=== PATIENT | male | born 1970 | race Hispanic/Latino ===

== ENCOUNTER 2017-11-29 13:57 | Inpatient (IN) | payer BC ==
--- NOTE | 2017-11-29 14:03 | EDPD ---
HPI Stroke - General Time Seen by Provider: 11/29/17 13:58 Historian: Patient, EMS - History of Present Illness Narrative History of Present Illness (Free Text): 11/29/17 14:00 47 year old male, who presents to the emergency department via EMS complaining of left sided weakness on leg and arm. Patient reports he woke up at 5AM and felt that he was "walking weird". He then went back to sleep and woke up at 11 AM this morning and when taking a step with his left foot, it wouldn't move. He also complaints of feeling weakness on his left arm. Patient denies headache, chest pain, shortness of breath, or other complaints. PMD: Dr. Sharonda Gu Date:: 11/29/16 Time: 14:00 Onset:: This morning Context: Walking Exacerbated by: Nothing Relieved by: Nothing rTPA Inclusion/Exclusion - Refusal of Treatment Patient Refused Treatment: No - Inclusion Criteria for Altepase Patient is 18 years or Older: Yes The Clinical Diagnosis of Ischemic Stroke That is Causing a Potentially Disabling Neurological Deficit: Yes Time of Onset is Well Established to be Less Than 270 Minute Before Treatment Would Begin: Yes Risk/Benefit Discussed With Patient/Family Member Present: Yes - Exclusion Criteria for Altepase Uncontrolled Hypertension at Time of Treatment (Systolic BP above 185 or Diastolic BP above 110 mmHg): No Past Medical History - Provider Review Nursing Documentation Reviewed: Yes - Psychiatric Hx Substance Use: No Family/Social History - Family/Social History Family History: Non-Contributory - Review Nursing documentation reviewed.: Yes Allergies/Home Meds Allergies/Adverse Reactions: Allergies No Known Allergies Allergy (Verified 11/29/17 16:05) Home Medications: Home Meds Medication Instructions Recorded Confirmed No Known Home Med 05/21/16 11/29/17 Review of Systems - Review of Systems Constitutional: absent: Fevers Respiratory: absent: SOB, Cough Cardiovascular: absent: Chest Pain Gastrointestinal: absent: Abdominal Pain, Vomiting Genitourinary Male: absent: Dysuria Musculoskeletal: absent: Back Pain Neurological: Focal Weakness (left sided ), Gait Changes. absent: Dizziness, Speech Changes ED Stroke Physical Exam Vital Signs Reviewed: Yes Temperature: Afebrile Blood Pressure: Hypertensive Pulse: Regular Respiratory Rate: Normal Appearance: Positive for: Well-Appearing, Non-Toxic, Comfortable Pain Distress: None Mental Status: Positive for: Alert and Oriented X 3 - Systems Exam Head: Present: Atraumatic, Normocephalic Pupils: Present: PERRL Extroacular Muscles: Present: EOMI Conjunctiva: Present: Normal Mouth: Present: Moist Mucous Membranes Neck: Present: Normal Range of Motion Respiratory/Chest: Present: Clear to Auscultation, Good Air Exchange. No: Respiratory Distress, Accessory Muscle Use Cardiovascular: Present: Regular Rate and Rhythm, Normal S1, S2. No: Murmurs Abdomen: Present: Normal Bowel Sounds. No: Tenderness, Distention, Peritoneal Signs Back: Present: GCS, CN, SP Upper Extremity: Present: NORMAL PULSES, Capillary Refill < 2s. No: Cyanosis, Edema Lower Extremity: Present: NORMAL PULSES. No: Edema Neurologic: Present: GCS=15, CN II-XII Intact, Speech Normal, Motor Func Grossly Intact (left arm and leg weakness), Pronator Drift (left). No: Memory Normal, Normal 2Pt Descrimination, Facial Droop Skin: Present: Warm, Dry, Normal Color. No: Rashes Lymphatic: Present: OX3, NI, NC Psychiatric: Present: Alert, Oriented x 3, Normal Insight, Normal Concentration Medical Decision Making ED Course and Treatment: 11/29/17 Impression: 47 yo male with stroke like symptoms; left sided weakness Differential Diagnosis included but are not limited to: CVA vs TIA Plan: -- CT Head -- Labs -- EKG -- Chest X-ray -- Activase and Sodium Chloride -- Reassess and disposition Progress Notes: 11/29/17 14:00 Code stroke was activated. 11/29/17 14:[address]: Creator : Willian Jimenez MD FINDINGS: HEMORRHAGE: No intracranial hemorrhage. BRAIN: No mass effect or edema. Chronic microvascular changes are seen in the basal ganglia and periventricular white matter. There are no acute intracranial findings VENTRICLES: Unremarkable. No hydrocephalus. CALVARIUM: Unremarkable. PARANASAL SINUSES: Unremarkable as visualized. No significant inflammatory changes. MASTOID AIR CELLS: Unremarkable as visualized. No inflammatory changes. OTHER FINDINGS: None. IMPRESSION: No acute findings EKG: Ordered, reviewed, and independently interpreted the EKG. Rate : 96 BPM Rhythm : NSR Interpretation : No ST-segment elevations or depressions, T-wave inversions at 3 & ABF. Comparison : No previous EKG for comparison. 11/29/17 14:26 Patient was evaluated by Dr. Barnes, Neurologist, who agreed that tPA is indicated in this patient due to CVA symptoms and within the 4.5 window of treatment. tPA was ordered by me and confirmed by pharmacy. 11/29/17 14:36 Patient had an elevated BP and was given Labetolol 10mg IVP x 2. His blood pressure improved and was consistantly at a level appropriate for tPA administration. tPA was pushed slowly by me over 1-2min. Patient tolerated medication well. BP increased and at that patient tPA drip was on hold for a brief time. Cardene drip was ordered and blood pressure quickly improved. tPA was continued. Dr. Barnes with me at bedside throughout this case. Dr. Barnes discussed the CT with the Neurointerventialist and communicated to me that the patient could be admitted to our ICU for further management. No immediately need for intervention was communicated. Case was discussed with Dr. Osullivan, who agreed to admit this patient to the ICU. Case was discussed with Dr. Franco who admits Dr. Gu's patients. 11/29/2017 14:44 Head/Neck CTA IMPRESSION: Atherosclerotic changes are identified at the cavernous right ICA as well as proximal left ICA in the neck without significant stenosis. No additional pertinent findings on CT angiography of the head and neck. No anuerysm or arteriovascular malformation identified. Dictator: Alexandro You DO 11/29/2017 15:38 Chest X-ray IMPRESSION: No active disease. Dictator: Willian Curry MD - Lab Interpretations I have reviewed the lab results: Yes - RAD Interpretation Radiology Orders: 11/29/17 13:59 CTA HEAD/NECK CODE STROKE [CT] Stat HEAD W/O (CODE STROKE) [CT] Stat CHEST PORTABLE [RAD] Stat Telephone Clerk Telegraph Office: Radiologist - EKG Interpretation Interpreted by ED Physician: Yes Type: 12 lead EKG - Scribe Statement The provider has reviewed the documentation as recorded by the Tammy Nur Provider Scribe Attestation: All medical record entries made by the Scribe were at my direction and personally dictated by me. I have reviewed the chart and agree that the record accurately reflects my personal performance of the history, physical exam, medical decision making, and the department course for this patient. I have also personally directed, reviewed, and agree with the discharge instructions and disposition. NIHSS Scale ([place]) Time Performed: 14:00 - How Severe is the Stoke Baseline Level of Consciousness: 0=Alert LOC to Questions: 0=Both comments correct LOC to commands: 0=Obeys both correctly Best Gaze: 0=Normal Visual: 0=No visual loss Facial: 0=Normal Motor Arm - Left: 2=Falls before 10 sec Motor Arm - Right: 0=No drift Motor Leg - Left: 3=No effort against gravity (falls immediately) Motor Leg - Right: 0=No drift Limb Ataxia: 2=Present both Sensory: 1=Mild to moderate loss Best Language: 0=No aphasia Dysarthia: 0=Normal articulation Extinction & Inattention (Neglect): 0=Normal, no object Score: 8 Risk Level: Mod Stroke Risk Disposition/Present on Arrival - Present on Arrival Any Indicators Present on Arrival: No History of DVT/PE: No History of Uncontrolled Diabetes: No Urinary Catheter: No History Surgical Site Infection Following: None - Disposition Have Diagnosis and Disposition been Completed?: Yes Diagnosis: CVA (cerebral vascular accident) Disposition: HOSPITALIZED Disposition Time: 15:35 Patient Plan: Admission, ICU Condition: GUARDED
[2017-11-29] MEDS ORDERED: Iodixanol 320 mg/ml 150 ml Bottle IV ONE (14:06)
--- NOTE | 2017-11-29 14:24 | CT ---
PROCEDURE: CT HEAD WITHOUT CONTRAST. HISTORY: Code Stroke COMPARISON: None available. TECHNIQUE: Axial computed tomography images were obtained through the head/brain without intravenous contrast. Radiation dose: Total exam DLP = 859 mGy-cm. This CT exam was performed using one or more of the following dose reduction techniques: Automated exposure control, adjustment of the mA and/or kV according to patient size, and/or use of iterative reconstruction technique. FINDINGS: HEMORRHAGE: No intracranial hemorrhage. BRAIN: No mass effect or edema. Chronic microvascular changes are seen in the basal ganglia and periventricular white matter. There are no acute intracranial findings VENTRICLES: Unremarkable. No hydrocephalus. CALVARIUM: Unremarkable. PARANASAL SINUSES: Unremarkable as visualized. No significant inflammatory changes. MASTOID AIR CELLS: Unremarkable as visualized. No inflammatory changes. OTHER FINDINGS: None. IMPRESSION: No acute findings
[2017-11-29] MEDS ORDERED: Labetalol 5 mg/ml Inj 20ML IV STA ×2 (14:36→14:49)
[2017-11-29 14:43] LABS: BASO # 0.06 K/mm3 (0.0-2.0); BASO % 0.5 % (0.0-3.0); EOS # 0.2 (0.0-0.7); EOS % 1.8 % (1.5-5.0); GRAN # 9.65 (1.4-6.5); GRAN % 72.7 % (50.0-68.0); HEMOGLOBIN 14.5 g/dL (14.0-18.0); LYMPH # 2.5 (1.2-3.4); LYMPH % 18.8 % (22.0-35.0); MEAN CELL VOLUME 96.3 fl (80.0-105.0); MEAN CORPUSCULAR HGB CONC 35.3 g/dl (31.0-37.0); MEAN PLATELET VOLUME 10.6 fl (7.0-11.0); MONO # 0.8 (0.1-0.6); MONO % 6.2 % (1.0-6.0); RBC 4.27 10^6/uL (3.5-6.1); RED CELL DISTRIBUTION WIDTH 12.8 % (11.5-14.5); WHITE BLOOD COUNT 13.3 10^3/ul (4.5-11.0)
[2017-11-29 14:45] LABS: ALB/GLOB RATIO 1.4 (1.1-1.8); ALBUMIN 4.6 g/dL (3.0-4.8); ALT/SGPT 23 U/L (7-56); AST/SGOT 27 U/L (17-59); BLOOD UREA NITROGEN 9 mg/dL (7-21); CALCIUM 9.2 mg/dL (8.4-10.5); GFR AFRICAN-AMERICAN > 60; GFR NON-AFRICAN AMERICAN > 60; HDL CHOLESTEROL 70 mg/dL (29-60)
--- NOTE | 2017-11-29 14:46 | CT ---
PROCEDURE: CT Angiography of the Brain. HISTORY: cva COMPARISON: None available. TECHNIQUE: CT angiography of the intracranial and neck arteries was performed. Coronal and sagittal maximum intensity projection reformated images were generated. Contrast Dose: Omnipaque 350, 150 cc. Radiation dose:Total exam DLP = 672.66 mGy-cm. This CT exam was performed using one or more of the following dose reduction techniques: Automated exposure control, adjustment of the mA and/or kV according to patient size, and/or use of iterative reconstruction technique. FINDINGS: INTERNAL CEREBRAL ARTERIES: The skull base, petrous, and supraclinoid segments are bilaterally widely patent. The left cavernous ICA segments widely patent with the right cavernous segment mildly stenosed due to atherosclerosis. ANTERIOR CEREBRAL ARTERIES: Unremarkable. A1 and A2 segments are widely patent. Smaller distal branches unremarkable, as visualized. MIDDLE CEREBRAL ARTERIES: Unremarkable. M1 and M2 segments are widely patent. Perisylvian branches grossly symmetric. POSTERIOR CIRCULATION: Basilar Artery: Unremarkable. Distal Vertebral Arteries: No dominant distal bilateral vertebral arteries are identified which are widely patent. Posterior Cerebral Arteries: Unremarkable. Posterior Inferior Cerebellar Arteries: Unremarkable. NECK CTA: Common Carotid arteries: The bilateral common carotid appear patent from their origins to their bifurcations with no significant stenosis appreciated. Mild left carotid bulbar atherosclerosis appreciated extending into the proximal left ICA segment without significant stenosis. No evidence to suggest common carotid artery dissection. Internal Carotid arteries: No significant stenosis is appreciated throughout the cervical internal carotid artery segments bilaterally and there is no evidence of dissection either. Mild proximal left ICA atherosclerotic plaques identified. External Carotid arteries: Appear unremarkable bilaterally. Vertebral arteries: The bilateral vertebral arteries appear normal in caliber from their origins to their junction with the basilar artery. No significant stenosis or definite pattern of dissection. ANEURYSM/ VASCULAR MALFORMATIONS: None. OTHER FINDINGS: None. IMPRESSION: Atherosclerotic changes are identified at the cavernous right ICA as well as proximal left ICA in the neck without significant stenosis. No additional pertinent findings on CT angiography of the head and neck. No aneurysm or arteriovascular malformation identified.
[2017-11-29 14:51] LABS: INR 0.9 (0.93-1.08); PARTIAL THROMBOPLASTIN TIME 32.8 Seconds (25.1-36.5); PROTHROMBIN TIME 10.2 SECONDS (9.4-12.5)
[2017-11-29 14:55] LABS: TROPONIN I < 0.01 ng/mL
[2017-11-29 14:56] LABS: LDL CHOLESTEROL 135 mg/dL (0-129)
[2017-11-29] MEDS ORDERED: Nicardipine 20 MG/200 ML 20 MG/200 ML BAG IV PRN ×2 (15:02→18:22)
--- NOTE | 2017-11-29 15:07 | CP.PCM.CON ---
History of Present Illness - History of Present Illness History of Present Illness: Mr Marcos is a 47 year old male, with pmh of untreated HTN, who woke up at 5 am, feeling strange when he was walking, resolved, and then went back to sleep. He woke up again at 11 am, and when he took a step, he had profound weakness of his left leg, and left arm, and no language difficulties. This did not resolve, and he came by ambulance to the ER. Patient denies headache, chest pain, shortness of breath, or other complaints. In the ER, he was found to have left arm drift, and left leg weakness. There was no facial droop, no language difficulties. 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 All: nkda. 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/5 left bicep, 4/5 left tricep + left pronator drift Sensation grossly intact bilaterally no apraxia, no dysmetria no tremors, toes downgoing, no clonus Past Patient History - Infectious Disease Hx of Infectious Diseases: None - Past Social History Smoking Status: Heavy Smoker > 10 Cigarettes Daily - PSYCHIATRIC Hx Substance Use: No - SURGICAL HISTORY Hx Surgeries: No Meds Allergies/Adverse Reactions: Allergies Allergy/AdvReac Type Severity Reaction Status Date / Time No Known Allergies Allergy Verified 11/29/17 16:05 - Medications Medications: Current Medications Sodium Chloride (Sodium Chloride 0.9%) 1,000 mls @ 100 mls/hr IV .Q10H RAVINDRA Labetalol HCl (Trandate) 10 mg IV STAT STA Stop: 11/29/17 14:50 Results - Labs Result Diagrams: 11/29/17 14:22 11/29/17 14:22 Labs: Laboratory Results - last 24 hr 11/29/17 11/29/17 14:22 14:22 WBC 13.3 H D RBC 4.27 Hgb 14.5 Hct 41.1 L MCV 96.3 MCH 34.0 MCHC 35.3 RDW 12.8 Plt Count 249 MPV 10.6 Gran % 72.7 H Lymph % (Auto) 18.8 L Morrow % (Auto) 6.2 H Eos % (Auto) 1.8 Baso % (Auto) 0.5 Gran # 9.65 H Lymph # (Auto) 2.5 Morrow # (Auto) 0.8 H Eos # (Auto) 0.2 Baso # (Auto) 0.06 Sodium 134 Potassium 3.7 Chloride 101 Carbon Dioxide 19 L Anion Gap 18 BUN 9 Creatinine 0.8 Est GFR ( Amer) > 60 Est GFR (Non-Af Amer) > 60 Random Glucose 92 Calcium 9.2 Total Bilirubin 0.5 AST 27 ALT 23 Alkaline Phosphatase 83 Total Protein 7.7 Albumin 4.6 Globulin 3.2 Albumin/Globulin Ratio 1.4 Triglycerides 210 H Cholesterol 232 H HDL Cholesterol 70 H - Imaging and Cardiology CT scan - head Status: Image reviewed by me, Report reviewed by me Assessment & Plan - Assessment and Plan (Free Text) Assessment: 47 yr old male, right handed, who is a candidate for TPA at this time. We will control his blood pressure with labetalol and/or cardene drip as it is extremely high. I believe his stroke is in the right MCA internal capsule, M 2 division. TPA given at 250 pm. Plan: 1. Admit to ICU 2. Keep bp around 170-180/90 3. ECho with bubble study 4. homocysteine, antiphospholipid antibody, factor 5 leiden, protein c, protein s, antithrombin [address] head in 24 hours. 6. pt/st/ot 7. Venodynes 8. Mri brain in am. thank you dr. lindsey
--- NOTE | 2017-11-29 15:40 | RAD ---
HISTORY: Code Stroke COMPARISON: 05/21/2016 FINDINGS: LUNGS: No active pulmonary disease. PLEURA: No significant pleural effusion identified, no pneumothorax apparent. CARDIOVASCULAR: Normal. OSSEOUS STRUCTURES: No significant abnormalities. VISUALIZED UPPER ABDOMEN: Normal. OTHER FINDINGS: None. IMPRESSION: No active disease.
[2017-11-29] MEDS ORDERED: Insulin Reg-LOW-Coverage SC SCH (16:15)
[2017-11-29] MEDS: Sodium Chloride 0.9% 1,000 ML IV SCH (16:54)
[2017-11-29 18:34] VITALS: BMI 27.5
[2017-11-29] MEDS ORDERED: Pneumococcal 23-Valent Vaccine IM ONE (18:34)
--- NOTE | 2017-11-29 22:19 | CARD ---
APPROVED REPORT EKG Measurement Heart [id number] <Conclusion> Normal sinus rhythm Septal infarct, age undetermined Abnormal ECG
--- NOTE | 2017-11-30 03:47 | CON ---
DATE: 11/29/2017 HISTORY OF PRESENT ILLNESS: The patient is seen and examined at bedside. This is a 47-year-old gentleman with history of untreated hypertension who was admitted to [facility] ER after initially waken up around 11:00 in the morning feeling profoundly weak in his left leg, left arm. He did not however had language difficulties. His symptoms did not resolve and he was brought into [facility] by ambulance. No nausea, no vomiting, no diarrhea, no constipation. CAT scan of the head did not reveal any bleeding. NIH score calculated at the time of admission was 9. PAST MEDICAL HISTORY: Hypertension. SOCIAL HISTORY: The patient smokes half a pack a day, but no alcohol. 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 ALLERGIES: NKDA. FAMILY HISTORY: Noncontributory. MEDICATION AT HOME: None. REVIEW OF SYSTEM: Review of 12-organ system other than mentioned in history of present illness is negative. PHYSICAL EXAMINATION: GENERAL: Of note, the patient already received t-PA. As per destination imagination coordinator, who was at the bedside at the time of examination, left-sided weakness in the upper and lower extremities substantially improved. ENT: Head and neck atraumatic. LUNGS: Clear to auscultation bilaterally. HEART: Regular rate and rhythm. S1, S2 normal. ABDOMEN: Soft, nontender, nondistended. MUSCULOSKELETAL: No C/C/E. NEURO: The patient is able to shrug his shoulders, stick out tongue, frown his brows symmetrically without any deficit. He was able to smile without any asymmetry in nasolabial folds. Motor strength in the right upper and lower extremities 5/5 and motor strength in the left upper and lower extremity about 3/5. SKIN: Moist. PSYCHIATRIC: The patient is alert, awake, and oriented x3. Comfortable. LABORATORY DATA: WBC 13.3, hemoglobin 14.5, platelet count 249. INR 0.9. Sodium 134, potassium 3.7, chloride 101, carbon dioxide 19. BUN 9, creatinine 0.8. AST 27, ALT 23, bilirubin 0.5, triglyceride 210, total cholesterol 232, LDL cholesterol 135, HDL cholesterol 70. Head CT, no acute intracranial pathology. CT of the head and neck revealed atherosclerotic changes in the cavernous, right ICA as well as proximal left ICA in the neck without significant stenosis. No additional pertinent findings on CT angiography of the head and neck. No aneurysm or arteriovascular malformations identified. ASSESSMENT AND PLAN: This 47-year-old gentleman with uncontrolled hypertension who presented with clinical stroke in the right MCA territory, which substantially improved after t-PA. At present time, the patient will be going to Intensive Care Unit for blood pressure monitoring, serial neuro exam. The patient's blood pressure will be controlled at below 180/105 for next 24 hours. Therapeutic anticoagulation as well as antiplatelet therapy will be avoided for 48 hours after t-PA administration. Echocardiogram, carotid Doppler will be ordered. Occupational therapy and physical therapy will be ordered. Swallow evaluation will be ordered. N.p.o. until then. We will continue to target euvolemia, euglycemia, normothermia and oxygen saturation more than 90%. ccm time 40 min Jesus Osullivan MD KIMO
--- NOTE | 2017-11-30 06:58 | CT ---
EXAM: CT Head Without Intravenous Contrast CLINICAL HISTORY: 47 years old, male; Screening exam; Additional info: Fu stroke TECHNIQUE: Axial computed tomography images of the head/brain without intravenous contrast. All CT scans at this facility use one or more dose reduction techniques, viz.: automated exposure control; ma/kV adjustment per patient size (including targeted exams where dose is matched to indication; i.e. head); or iterative reconstruction technique. Coronal and sagittal reformatted images were created and reviewed. COMPARISON: CT - HEAD W/O (CODE STROKE) 2017-11-29 14:05 FINDINGS: Brain: There is mild ill-defined patchy hypodensity within the bilateral cerebral periventricular white matter, consistent with chronic microvascular ischemic changes. Chronic ischemic changes/lacunar infarctions are seen in bilateral basal ganglia. There is mild diffuse cerebral atrophy present, consistent with this patient's age. The cortical pérez / white matter interfaces are preserved throughout the brain. Examination of the posterior fossa demonstrates no significant abnormality. No hemorrhage. Ventricles: The ventricular system demonstrates mild diffuse compensatory enlargement. Bones/joints: Unremarkable. No acute fracture. Soft tissues: Unremarkable. Vasculature: There is no hyperdense MCA sign. Sinuses: Unremarkable as visualized. No acute sinusitis. Mastoid air cells: Unremarkable as visualized. No mastoid effusion. IMPRESSION: No acute infarction, masses or hemorrhage is seen. No acute intracranial abnormality is identified.There has been no adverse interval change since the previous study. Diffuse age-related cerebral atrophy and mild chronic microvascular white matter ischemic changes, without evidence of an acute intracranial abnormality.
--- NOTE | 2017-11-30 07:48 | CP.CCUPN ---
<Kyra Rondon - Last Filed: 11/30/17 10:16> CCU Subjective - Physician Review Subjective (Free Text): 11/30/17 10:16 Patient seen and examined at bedside. No acute events overnight. Reports mild improvement in his LUE and LLE weakness. Denies headache, dizziness, new focal deficit/weakness, blurry vision, nausea, vomiting, abdominal pain. Critical Care Time Spent (in minutes): 60 CCU Objective - Vital Signs / Intake & Output Vital Signs (Last 4 hours): Vital Signs Temp Pulse Resp BP Pulse Ox 11/30/17 06:30 78 13 148/98 H 96 11/30/17 06:20 61 13 95 11/30/17 06:10 57 L 11 L 95 11/30/17 06:01 70 16 163/89 H 97 11/30/17 06:00 98 F 85 38 H 163/89 H 89 L 11/30/17 05:50 79 39 H 95 11/30/17 05:40 75 56 H 98 11/30/17 05:30 59 L 15 145/73 98 11/30/17 05:20 58 L 19 96 11/30/17 05:10 61 34 H 96 11/30/17 05:00 57 L 13 155/68 H 97 11/30/17 04:50 61 14 96 11/30/17 04:40 60 11 L 96 11/30/17 04:31 63 10 L 168/92 H 95 11/30/17 04:30 64 16 97 11/30/17 04:24 79 29 H 172/99 H 98 11/30/17 04:22 60 11/30/17 04:02 151/99 H 11/30/17 04:01 96 11/30/17 04:00 73 23 98 11/30/17 03:50 58 L 11 L 95 Intake and Output (Last 8hrs): Intake & Output 11/29/17 11/30/17 11/30/17 22:59 06:59 14:59 Intake Total 10 1200 Output Total 1700 Balance 10 -500 Weight 186 lb 3.2 oz Intake: IV 10 1200 .9 1200 Output: Urine 1700 Urine, Voided 1700 Other: Voiding Method Urinal - Physical Exam Head: Positive for: Atraumatic, Normocephalic Pupils: Positive for: PERRL Extroacular Muscles: Positive for: EOMI Conjunctiva: Positive for: Normal Mouth: Positive for: Moist Mucous Membranes Neck: Positive for: Normal Range of Motion Respiratory/Chest: Positive for: Clear to Auscultation, Good Air Exchange. Negative for: Respiratory Distress, Accessory Muscle Use Cardiovascular: Positive for: Regular Rate and Rhythm, Normal S1, S2. Negative for: Murmurs Abdomen: Positive for: Normal Bowel Sounds. Negative for: Tenderness, Distention, Peritoneal Signs Back: Positive for: GCS, CN, SP Upper Extremity: Positive for: NORMAL PULSES, Capillary Refill < 2s. Negative for: Cyanosis, Edema Lower Extremity: Positive for: NORMAL PULSES. Negative for: Edema, CALF TENDERNESS Neurological: Positive for: GCS=15, CN II-XII Intact, Speech Normal, Normal Sensory Function, Other (LUE 4/5, RUE 5/5. LLE 3/5, RLE 5//5. Left foot drop.) . Negative for: Gait Normal Skin: Positive for: Warm, Dry, Normal Color. Negative for: Rashes Lymphatic: Positive for: OX3, NI, NC Psychiatric: Positive for: Alert, Oriented x 3, Normal Insight, Normal Concentration - Medications Active Medications: Active Medications Generic Name Dose Route Start Last Admin Trade Name Freq PRN Reason Stop Dose Admin Atorvastatin Calcium 40 mg 11/29/17 17:00 11/29/17 18:24 Lipitor PO Not Given DIN RAVINDRA Sodium Chloride 1,000 mls @ 100 mls/hr 11/29/17 14:00 11/29/17 16:54 Sodium Chloride 0.9% IV 100 mls/hr .Q10H RAVINDRA Administration Nicardipine HCl 20 mg in 200 mls @ 50 mls/hr 11/29/17 18:22 Cardene Iv Premix IV .Q4H PRN TITRATE PER MD ORDER Protocol 5 MG/HR Nicotine 1 patch 11/30/17 10:00 Nicoderm Cq TD DAILY RAVINDRA - Patient Studies Lab Studies: Lab Studies 11/29/17 Range/Units 19:26 Blood Type O POSITIVE Antibody Screen Negative BBK History Checked No verified bt Laboratory Results - last 24 hr 11/29/17 19:26 Blood Type O POSITIVE Antibody Screen Negative BBK History Checked No verified bt Fingerstick Blood Sugar Results: 96 Review of Systems - Review of Systems All systems: reviewed and no additional remarkable complaints except Review of Systems: as per subjective portion of note Assessment/Plan - Assessment and Plan (Free Text) Assessment: 47 year old male with PMH HTN, presents for clinical right MCA CVA, s/p tPA, admitted to ICU for hemodynamic monitoring and bleeding precautions after TPA administration: Neuro: AAOx4 today. Neuro checks. Maintain BP 170-180/90 Echo, carotid doppler ordered. F/u results. OT/PT eval. Repeat Head CT neg for acute changes. Cont to monitor. If stable after 24h of TPA administration, will downgrade from ICU. CV : Hx of HTN. Monitor BP. Maintain BP 170-180/90 Hemodynamically stable. Cont to monitor. Pulm: On RA. Saturating well. Maintain O2 sat>90% GI: Passed formal swallow eval. Heart healthy diet. Continue with Protonix. Renal: BUN/Cr stable. Replace lytes, maintain euvolemia. Continue to monitor. ID: Afebrile, mild leukocytosis (likely reactive). Monitor Endo: Maintain euglycemia 140-180. Heme: Stable. Cont to monitor. Psych: Normal mood. DVT ppx - held because s/p tPA GI ppx - Protonix Case seen and discussed with attending, Dr Briceño. Kyra Rondon PGY1 - Date & Time Date: 11/30/17 Time: 10:40 <Rocky Briceño - Last Filed: 11/30/17 12:34> CCU Objective - Vital Signs / Intake & Output Vital Signs (Last 4 hours): Vital Signs Pulse Resp BP Pulse Ox 11/30/17 12:05 81 199/103 H 11/30/17 10:30 171/99 H 11/30/17 10:29 77 15 11/30/17 10:28 71 11/30/17 10:27 81 11 L 11/30/17 10:26 80 11 L 11/30/17 10:25 79 24 11/30/17 10:24 89 71 H 11/30/17 10:23 78 26 H 11/30/17 10:22 81 11/30/17 10:21 75 22 11/30/17 10:20 70 22 11/30/17 10:19 67 14 11/30/17 10:18 69 17 11/30/17 10:17 67 14 11/30/17 10:16 65 14 11/30/17 10:15 63 14 11/30/17 10:14 67 14 11/30/17 10:13 68 13 11/30/17 10:12 68 11 L 11/30/17 10:11 66 11 L 11/30/17 10:10 66 13 11/30/17 10:09 65 11/30/17 10:08 64 14 11/30/17 10:07 65 15 11/30/17 10:06 66 14 11/30/17 10:05 69 24 11/30/17 10:04 67 14 11/30/17 10:03 62 15 11/30/17 10:02 65 13 11/30/17 10:01 169/101 H 11/30/17 10:00 67 19 11/30/17 09:50 69 11 L 96 11/30/17 09:40 74 18 95 11/30/17 09:30 60 9 L 170/92 H 95 11/30/17 09:20 69 17 96 11/30/17 09:10 70 16 95 11/30/17 09:00 62 11 L 166/88 H 95 11/30/17 08:50 66 12 95 11/30/17 08:40 60 10 L 94 L Intake and Output (Last 8hrs): Intake & Output 11/29/17 11/30/17 11/30/17 22:59 06:59 14:59 Intake Total 10 1200 Output Total 1700 Balance 10 -500 Weight 186 lb 3.2 oz 186 lb Intake: IV 10 1200 .9 1200 Output: Urine 1700 Urine, Voided 1700 Other: Voiding Method Urinal - Medications Active Medications: Active Medications Generic Name Dose Route Start Last Admin Trade Name Freq PRN Reason Stop Dose Admin Atorvastatin Calcium 40 mg 11/29/17 17:00 11/29/17 18:24 Lipitor PO Not Given DIN RAVINDRA Hydralazine HCl 10 mg 11/30/17 11:30 11/30/17 12:05 Apresoline IVP 10 mg Q6 PRN Administration Systolic Blood Pressure Sodium Chloride 1,000 mls @ 100 mls/hr 11/29/17 14:00 11/29/17 16:54 Sodium Chloride 0.9% IV 100 mls/hr .Q10H RAVINDRA Administration Nicardipine HCl 20 mg in 200 mls @ 50 mls/hr 11/29/17 18:22 Cardene Iv Premix IV .Q4H PRN TITRATE PER MD ORDER Protocol 5 MG/HR Nicotine 1 patch 11/30/17 10:00 11/30/17 09:27 Nicoderm Cq TD 1 patch DAILY RAVINDRA Administration Pantoprazole Sodium 20 mg 11/30/17 16:00 Protonix Ec Tab PO 0600,1600 RAVINDRA - Patient Studies Lab Studies: Lab Studies 11/29/17 Range/Units 19:26 Blood Type O POSITIVE Antibody Screen Negative BBK History Checked No verified bt Laboratory Results - last 24 hr 11/29/17 19:26 Blood Type O POSITIVE Antibody Screen Negative BBK History Checked No verified bt Critical Care Progress Note - Nutrition Nutrition: Nutrition Category Date Time Status Heart Healthy Diet [DIET] Diets 11/30/17 Lunch Ordered Assessment/Plan - Assessment and Plan (Free Text) Assessment: Patient seen and examined, agree with note with following additions/exceptions: Patient is 47 year old male with PMH HTN, presents for clinical right MCA CVA, s /p tPA, admitted to ICU. Currently afebrile, HD stable, comfortable deficits significantly improving, MRI/MRA pending. Neurology following. CVA s/p tPA HTN Recommend: - supp o2 as needed - panculture, UCx, BCx, Procal - BP control - ECHo - HgbA1C, Lipid Panel - follow up neuro - MRi/MRA brain - Speech swallow eval - ASA 24hrs post tPA - Statin - GI ppx - DVT ppx, SCDs - monitor in CCU
--- NOTE | 2017-11-30 09:20 | US ---
PROCEDURE: Bilateral carotid artery duplex ultrasound HISTORY: Carotid stenosis CVA PHYSICIAN(S): Basil Gu MD. TECHNIQUE: Duplex sonography and color-flow Doppler were used to evaluate the carotid bifurcations and limited segments of the vertebral arteries bilaterally. The exam is somewhat limited by body habitus and tortuous vessels FINDINGS: There is mild smooth heterogeneous plaque noted at the carotid bifurcations bilaterally. The peak systolic velocity in the proximal right internal carotid artery is 91 cm/sec. This corresponds to a 20 to 39% proximal right ICA stenosis. Normal systolic velocities are noted in the proximal right external carotid artery. There is antegrade flow in the right vertebral artery. The peak systolic velocity in the proximal left internal carotid artery is 100 cm/sec. This corresponds to a 20 to 39% proximal left ICA stenosis. Normal systolic velocities are noted in the proximal left external carotid artery. There is antegrade flow in the left vertebral artery. IMPRESSION: 1. Bilateral 20-39% proximal ICA stenoses. 2. Antegrade flow in both vertebral arteries.
[2017-11-30] MEDS ORDERED: Gadodiamide 287 MG/ML VIAL (20ML) IV ONE (12:38)
--- NOTE | 2017-11-30 13:38 | MRI ---
PROCEDURE: MRI BRAIN WITH AND WITHOUT CONTRAST HISTORY: r/o CVA COMPARISON: None. TECHNIQUE: Multiplanar, multisequence MR images of the brain were obtained with and without intravenous contrast enhancement. 20 cc of Omniscan FINDINGS: HEMORRHAGE: None DWI: There is a 12 mm acute infarct in the right posterior clemente radiata also extending into the internal capsule BRAIN PARENCHYMA: No mass,mass effect or edema. Chronic microvascular changes are seen in the periventricular white matter. ENHANCEMENT: No abnormal intracranial enhancement. VENTRICLES: Unremarkable. No hydrocephalus. CRANIUM: Unremarkable. ORBITS: Grossly unremarkable. PARANASAL SINUSES/MASTOIDS: Clear VASCULAR SYSTEM: Skull base flow voids intact. OTHER FINDINGS: None . IMPRESSION: There is a 12 mm acute infarct in the right posterior clemente radiata also extending into the internal capsule
[2017-11-30] MEDS: Sodium Chloride 0.9% 1,000 ML IV SCH (14:27)
--- NOTE | 2017-11-30 14:36 | HP ---
DATE OF EXAM: 11/30/2017 CHIEF COMPLAINT AND HISTORY OF PRESENT ILLNESS: This is a 47-year-old male who is coming into the hospital with complaints of left leg weakness. He says that he woke up yesterday morning and started having left leg weakness. He stated to me that he woke up at 5 a.m. and did not feel well. He gone back to sleep and woke up again at 11, when he was taking his first few steps, he noticed that his left foot was not moving as well as it normally does. He waited and thought that it may improve and then when it did not, he came into the emergency room for further evaluation. He denied any weakness in the arms. He has no fevers or chills. No headaches. No dysuria or dysarthria. He says he also has left arm weakness. He had an NIH stroke scale of 9. The patient was given t-PA and then transferred to the ICU. He had no facial asymmetry. He had no difficulty in speaking. He has no dysphagia or dysarthria. REVIEW OF SYMPTOMS: All other review of symptoms are within normal limits except what was mentioned. ALLERGIES: NO KNOWN DRUG ALLERGIES. HOME MEDICATIONS: None. SOCIAL HISTORY: He smokes about half a pack per day. He denies alcohol or drugs. 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 FAMILY HISTORY: Noncontributory. PHYSICAL EXAMINATION: VITAL SIGNS: He has a temperature of 98, pulse is 61, blood pressure 140/98, respiration is 13, O2 saturation 95%. Height is 5 feet 9 inches, weight is 186 pounds. GENERAL: The patient lying in bed, uncomfortable, and in no acute distress. HEENT: Atraumatic and normocephalic. Anicteric sclerae. Moist mucosa. [place] conjunctivae. No oral lesions. NECK: No JVD, anterior and posterior adenopathy, thyromegaly, or bruits. CARDIOVASCULAR: S1 and S2 regular. No murmur, rubs, or gallop. LUNGS: Clear to auscultation bilaterally. No wheezes, rales, or rhonchi. ABDOMEN: Bowel sounds are positive. Soft, nontender and nondistended. No hepatosplenomegaly. No rebound and no guarding EXTREMITIES: No cyanosis, clubbing, or edema. NEUROLOGIC: He has 4/5 power in the left arm. He has 4/5 power in the left leg. His hand mortgage consultant is about 3/5 power. He has no facial asymmetry. Tongue is midline. No uvula deviation. PSYCHIATRIC: He is awake, alert and oriented x3. No anxiety or depression. He has normal affect. GENITOURINARY: No CVA tenderness. VASCULAR: 2+ pulses in the carotid pulses and pedal pulses. SKIN: No erythema or nodules SPINE: Shows normal curvature. DIAGNOSTIC DATA: Chest x-ray shows no infiltrates. EKG shows a heart rate of 96, sinus rhythm. QTc is 462. Head and neck CTA shows atherosclerotic changes identified in the cavernous right ICA as well as proximal left ICA in the neck without significant stenosis. CT of the head done shows no acute infarct. Diffuse age-related cerebral atrophy. ASSESSMENT 1. Acute cerebrovascular accident, probable right middle cerebral artery stroke. 2. Hypertension. PLAN: The patient is currently admitted to the hospital. He has weakness in the left arm and left leg. His NIH scale was 9 and so he was given t-PA. He had an elevated blood pressure and for this, he was given labetalol. He has not been following much in the office. Neurology was contacted and Dr. Barnes had gone to the bedside to see the patient. He is feeling better. He says his strength is a bit better than it was yesterday when he came in. He is going to be on Lipitor for dyslipidemia. He is on IV fluids. The patient is going to have a workup for secondary causes of a stroke. He has protein C and S as well as antithrombin III, antiphospholipid. I will get Hematology to evaluate the patient as well. He is fairly young and it is concerning that he has a stroke. The patient has an echo that has been ordered as well. Bill Franco MD
--- NOTE | 2017-11-30 16:55 | CARD ---
APPROVED REPORT EXAM: Two-dimensional and M-mode echocardiogram with Doppler and color Doppler. INDICATION BUBBLE STUDY...R/O PFO 2D DIMENSIONS Left Atrium (2D)3.7 (1.6-4.0cm)IVSd1.2 (0.7-1.1cm) LVDd4.8 (3.9-5.9cm)PWd1.1 (0.7-1.1cm) LVDs3.7 (2.5-4.0cm)FS (%) 23.2 % LVEF (%)46.7 (>50%) M-Mode DIMENSIONS Aortic Root3.20 (2.2-3.7cm)Aortic Cusp Exc.1.90 (1.5-2.0cm) Aortic Valve AoV Peak Oyfkcobs802.0cm/Rhonda Peak GR.5mmHg Mitral Valve MV E Dozxzxxm54.6cm/sMV A Stbsacal84.6cm/sE/A ratio0.7 TDI E/Lateral E'0.0E/Medial E'0.0 LEFT VENTRICLE The left ventricle is normal size. There is normal left ventricular wall thickness. The systolic function is mildly impaired. Transmitral Doppler flow pattern is Grade I-abnormal relaxation pattern. RIGHT VENTRICLE The right ventricle is normal size. There is normal right ventricular wall thickness. The right ventricular systolic function is normal. ATRIA The left atrium size is normal. The right atrium size is normal. The interatrial septum is intact with no evidence for an atrial septal defect. AORTIC VALVE The aortic valve is normal in structure. No aortic regurgitation is present. There is no aortic valvular stenosis. MITRAL VALVE The mitral valve is normal in structure. There is no mitral valve regurgitation noted. There is no mitral valve stenosis. TRICUSPID VALVE The tricuspid valve is normal in structure. There is no tricuspid valve regurgitation noted. GREAT VESSELS The aortic root is normal in size. PERICARDIAL EFFUSION There is no pericardial effusion. <Conclusion> The left ventricle is normal size. There is normal left ventricular wall thickness. The systolic function is mildly impaired. Transmitral Doppler flow pattern is Grade I-abnormal relaxation pattern. The interatrial septum is intact with no evidence for an atrial septal defect.
[2017-11-30] MEDS: Pantoprazole 20 mg EC Tab PO SCH (16:57)
--- NOTE | 2017-12-01 01:02 | CP.PCM.PN ---
Subjective - Date & Time of Evaluation Date of Evaluation: 12/01/17 Time of Evaluation: 00:58 - Subjective Subjective: S: Seen at bedside. Requests a sleeping pill.States that he has been up since 4 AM in the morning. Has no other complaints. Medical record was reviewed. O: Last Vital Signs 3 Temp 98 F 11/30/17 06:00 Pulse 89 11/30/17 22:50 Resp 11 L 11/30/17 22:50 BP 156/99 H 11/30/17 22:00 Pulse Ox 90 L 11/30/17 22:50 BP : 176/101mm HG. LUNGS: Normal breathing pattern. NEURO:Speech Normla. EXT: Weakness in LUE LLE. A:Adjustment insomnia. Elevated blood pressure reading. P:Benadryl 25 mg PO x 1. Will receive Hydralazine as per order for elevated blood pressure reading. Objective - Vital Signs/Intake and Output Vital Signs (last 24 hours): Temp Pulse Resp BP Pulse Ox 98 F 89 11 L 156/99 H 90 L 11/30/17 06:00 11/30/17 22:50 11/30/17 22:50 11/30/17 22:00 11/30/17 22:50 Intake and Output: 11/30/17 12/01/17 18:59 06:59 Intake Total 1800 Output Total 1200 Balance 600 - Medications Medications: Current Medications Atorvastatin Calcium (Lipitor) 40 mg PO DIN [facility] Last Admin: 11/30/17 16:57 Dose: 40 mg Diphenhydramine HCl (Benadryl) 25 mg PO STAT STA Stop: 12/01/17 00:58 Hydralazine HCl (Apresoline) 10 mg IVP Q6 PRN PRN Reason: Systolic Blood Pressure Last Admin: 11/30/17 17:24 Dose: 10 mg Nicotine (Nicoderm Cq) 1 patch TD DAILY [facility] Last Admin: 11/30/17 09:27 Dose: 1 patch Pantoprazole Sodium (Protonix Ec Tab) 20 mg PO 0600,1600 [facility] Last Admin: 11/30/17 16:57 Dose: 20 mg - Labs Labs: PT 10.2 SECONDS (9.4-12.5) 11/29/17 14:22 INR 0.90 (0.93-1.08) L 11/29/17 14:22 APTT 32.8 Seconds (25.1-36.5) 11/29/17 14:22
[2017-12-01] MEDS: Pantoprazole 20 mg EC Tab PO SCH ×2 (06:35→18:15)
[2017-12-01 07:52] LABS: BASO # 0.05 K/mm3 (0.0-2.0); BASO % 0.6 % (0.0-3.0); EOS # 0.3 (0.0-0.7); EOS % 3.4 % (1.5-5.0); GRAN # 5.49 (1.4-6.5); GRAN % 62.8 % (50.0-68.0); HEMOGLOBIN 14.2 g/dL (14.0-18.0); LYMPH # 2.2 (1.2-3.4); LYMPH % 25.2 % (22.0-35.0); MEAN CELL VOLUME 98.1 fl (80.0-105.0); MEAN CORPUSCULAR HEMOGLOBIN 32.9 pg (25.0-35.0); MEAN CORPUSCULAR HGB CONC 33.6 g/dl (31.0-37.0); MEAN PLATELET VOLUME 10.9 fl (7.0-11.0); MONO # 0.7 (0.1-0.6); RBC 4.31 10^6/uL (3.5-6.1); RED CELL DISTRIBUTION WIDTH 13.1 % (11.5-14.5); WHITE BLOOD COUNT 8.7 10^3/ul (4.5-11.0)
[2017-12-01 08:09] LABS: ALB/GLOB RATIO 1.3 (1.1-1.8); ALT/SGPT 27 U/L (7-56); AST/SGOT 23 U/L (17-59); BLOOD UREA NITROGEN 10 mg/dL (7-21); CALCIUM 9.3 mg/dL (8.4-10.5); GFR AFRICAN-AMERICAN > 60; GFR NON-AFRICAN AMERICAN > 60
--- NOTE | 2017-12-01 14:51 | PN ---
DATE: 12/01/2017 SUBJECTIVE: He is comfortable in bed in no acute distress. He had complaints of palpitations last night. Also had inability to sleep. Heart rate was elevated up to 113 beats per minute. Denies any chest pain. No shortness of breath. He has not got out of the bed, left-sided arm and leg weakness improved markedly. REVIEW OF SYSTEMS: As per HPI. Rest of 12-point review of systems is reviewed and negative. PHYSICAL EXAMINATION: GENERAL: Comfortable in bed, no acute distress. VITAL SIGNS: Heart rate had tachycardia up to 113, blood pressure elevated to 187/106, repeat 183/78, pulse ox is 99% on room air, respiratory rate 18 per minute. NECK: No lymphadenopathy. CHEST: Air entry present equal and bilateral. No added sounds. CARDIOVASCULAR: S1 and S2 normal. No murmur and no gallop. ABDOMEN: Soft, nontender. No hepatosplenomegaly. EXTREMITIES: No edema. Left-sided hemiparesis present. SPINE: Nontender. SKIN: No petechiae. No rash. MEDICATIONS: Tylenol 650 every 6 hours p.r.n., Lipitor 40 mg daily, hydralazine 10 mg every 6 hours p.r.n., nicotine patch, Protonix 20 mg b.i.d. LABORATORY DATA: White count 8.7, hemoglobin 14.2, hematocrit 42.3, platelet 242. potassium 3.9, creatinine 0.9, triglyceride elevated 210. ASSESSMENT AND PLAN: 1. ischemic stroke in the right internal capsule, 12 mm on MRI. 2. Left-sided weakness, left hemiparesis, recovering. 3. Possible hypercoagulable state, thrombophilia workup ordered yesterday, results pending. 4. We will continue nicotine patch for chronic smoking, tolerating patch better, no problems regarding that. 5. Cardiovascular, episodes of tachycardia, chest discomfort. Cardiology, Dr. Turner consulted. 6. Hematology, [place] [address], normal now at 8.7. We will continue to follow. Luz Maria Dominguez MD [facility]
--- NOTE | 2017-12-02 03:25 | CP.PCM.PN ---
Subjective - Date & Time of Evaluation Date of Evaluation: 12/02/17 Time of Evaluation: 03:22 - Subjective Subjective: S:Patient was seen at bedside. Requests for a sleeping pill. States that benadryl he received yesterday helped him. Has no other complaints. Pertinent medical record was reviewed. O: Last Vital Signs 3 Temp 98.0 F 12/02/17 00:01 Pulse 98 H 12/02/17 00:01 Resp 22 12/02/17 00:01 BP 166/98 H 12/02/17 00:01 Pulse Ox 98 12/02/17 00:01 Awake, alert,not in distress. LUNGS: Normal breathing pattern. NEURO: Speech normal. A:Adjustment insomnia. P:Benadryl 25 mg PO x 1. Objective - Vital Signs/Intake and Output Vital Signs (last 24 hours): Temp Pulse Resp BP Pulse Ox 98.0 F 98 H 22 166/98 H 98 12/02/17 00:01 12/02/17 00:01 12/02/17 00:01 12/02/17 00:01 12/02/17 00:01 Intake and Output: 12/01/17 12/02/17 18:59 06:59 Intake Total 540 Output Total 400 Balance 140 - Medications Medications: Current Medications Acetaminophen (Tylenol 325mg Tab) 650 mg PO Q6H PRN PRN Reason: Pain, moderate (4-7) Aspirin (Aspirin) 325 mg PO DAILY [facility] Last Admin: 12/01/17 18:15 Dose: 325 mg Atorvastatin Calcium (Lipitor) 40 mg PO DIN [facility] Last Admin: 12/01/17 18:13 Dose: 40 mg Hydralazine HCl (Apresoline) 10 mg IVP Q6 PRN PRN Reason: Systolic Blood Pressure Last Admin: 12/01/17 23:53 Dose: 10 mg Nicotine (Nicoderm Cq) 1 patch TD DAILY [facility] Last Admin: 12/01/17 10:38 Dose: 1 patch Pantoprazole Sodium (Protonix Ec Tab) 20 mg PO 0600,1600 [facility] Last Admin: 12/01/17 18:15 Dose: 20 mg - Labs Labs: 12/01/17 07:00 12/01/17 07:00 PT 10.2 SECONDS (9.4-12.5) 11/29/17 14:22 INR 0.90 (0.93-1.08) L 11/29/17 14:22 APTT 32.8 Seconds (25.1-36.5) 11/29/17 14:22
[2017-12-02 06:36] LABS: BASO # 0.05 K/mm3 (0.0-2.0); BASO % 0.5 % (0.0-3.0); EOS # 0.3 (0.0-0.7); EOS % 3.3 % (1.5-5.0); GRAN # 6.25 (1.4-6.5); GRAN % 64.8 % (50.0-68.0); HEMOGLOBIN 14.2 g/dL (14.0-18.0); LYMPH # 2.2 (1.2-3.4); LYMPH % 23.2 % (22.0-35.0); MEAN CELL VOLUME 98.6 fl (80.0-105.0); MEAN CORPUSCULAR HEMOGLOBIN 33.4 pg (25.0-35.0); MEAN CORPUSCULAR HGB CONC 33.9 g/dl (31.0-37.0); MEAN PLATELET VOLUME 10.6 fl (7.0-11.0); MONO # 0.8 (0.1-0.6); MONO % 8.2 % (1.0-6.0); RBC 4.25 10^6/uL (3.5-6.1); RED CELL DISTRIBUTION WIDTH 13.2 % (11.5-14.5); WHITE BLOOD COUNT 9.7 10^3/ul (4.5-11.0)
[2017-12-02] MEDS: Pantoprazole 20 mg EC Tab PO SCH ×2 (06:51→17:20)
[2017-12-02 07:12] LABS: ALB/GLOB RATIO 1.4 (1.1-1.8); ALT/SGPT 23 U/L (7-56); AST/SGOT 23 U/L (17-59); BLOOD UREA NITROGEN 17 mg/dL (7-21); CALCIUM 9.1 mg/dL (8.4-10.5); GFR AFRICAN-AMERICAN > 60; GFR NON-AFRICAN AMERICAN > 60
--- NOTE | 2017-12-02 07:37 | CP.PCM.PN ---
Subjective - Date & Time of Evaluation Date of Evaluation: 12/02/17 Time of Evaluation: 07:37 - Subjective Subjective: Mr. Marcos was seen and examined at the bedside. He remains alert, oriented in all spheres. He denies any headache, dizziness, lightheadedness, nausea, or vomiting. He states of wanting to go to [facility] for intense physical therapy. He is able to follow simple commands. There was no untoward events overnight. Objective - Vital Signs/Intake and Output Vital Signs (last 24 hours): Temp Pulse Resp BP Pulse Ox 98.2 F 97 H 22 144/88 100 12/02/17 06:00 12/02/17 06:00 12/02/17 06:00 12/02/17 06:00 12/02/17 06:00 - Medications Medications: Current Medications Acetaminophen (Tylenol 325mg Tab) 650 mg PO Q6H PRN PRN Reason: Pain, moderate (4-7) Aspirin (Aspirin) 325 mg PO DAILY [facility] Last Admin: 12/01/17 18:15 Dose: 325 mg Atorvastatin Calcium (Lipitor) 40 mg PO DIN [facility] Last Admin: 12/01/17 18:13 Dose: 40 mg Hydralazine HCl (Apresoline) 10 mg IVP Q6 PRN PRN Reason: Systolic Blood Pressure Last Admin: 12/01/17 23:53 Dose: 10 mg Nicotine (Nicoderm Cq) 1 patch TD DAILY [facility] Last Admin: 12/01/17 10:38 Dose: 1 patch Pantoprazole Sodium (Protonix Ec Tab) 20 mg PO 0600,1600 [facility] Last Admin: 12/02/17 06:51 Dose: 20 mg Zolpidem Tartrate (Ambien) 10 mg PO HS PRN; Protocol PRN Reason: Insomnia - Labs Labs: 12/02/17 06:15 12/02/17 06:15 PT 10.2 SECONDS (9.4-12.5) 11/29/17 14:22 INR 0.90 (0.93-1.08) L 11/29/17 14:22 APTT 32.8 Seconds (25.1-36.5) 11/29/17 14:22 - Constitutional Appears: No Acute Distress - Head Exam Head Exam: NORMAL INSPECTION - Neurological Exam Neurological Exam: Alert, Awake, CN II-XII Intact, Oriented x3 Neuro motor strength exam: Left Upper Extremity: 5, Right Upper Extremity: 5, Left Lower Extremity: 4 (turns towards the right leg when elevated.), Right Lower Extremity: 5 Additional comments: Alert, oriented, follows commands. Sensation remains intact. Assessment and Plan (1) CVA (cerebral vascular accident) Assessment & Plan: Case discussed with Dr. Barnes, continue all current medical, physical, and occupational therapies. Recommend acute rehab for discharge planning and blood pressure control. Status: Acute
--- NOTE | 2017-12-02 07:40 | PN ---
DATE: 12/02/2017 SUBJECTIVE He is comfortable in bed, in no acute distress. Left arm weakness and left leg weakness slightly improved. He has complains of lack of sleep and was given Benadryl in the night. Heart rate was elevated yesterday. Cardiology consultation, Dr. Turner, was requested; heart rate is better controlled now. Blood pressure was also elevated yesterday which is normal and that has improved today. REVIEW OF SYSTEMS: As per HPI. Rest of the 12-point review of systems reviewed negative. PHYSICAL EXAMINATION: GENERAL: Comfortable in bed in acute distress. VITAL SIGNS: Temperature 98.2, heart rate is 97, blood pressure 144/88, respiratory rate 22, oxygen saturation 100% on room air. HEENT: No lymphadenopathy. CHEST: Air entry present and equal bilaterally. No added sound. CARDIOVASCULAR: S1, S2 normal. No murmur. No gallop. ABDOMEN: Soft, nontender. No hepatosplenomegaly. EXTREMITIES: No edema. OPERATIONS TECH: Left-sided hemiparesis present. Stable. SKIN: No petechiae. No rash. SPINE: Nontender. LABORATORY DATA: Labs on 12/01, sodium 143, potassium 3.9, creatinine 0.9. White count 8.7, hemoglobin 14.3, hematocrit 42.3, platelet 242. ASSESSMENT AND PLAN: 1. Ischemic stroke in the right internal capsule 2. Left-sided hemiparesis. 3. Tachycardia. 4. Hypercholesterolemia. 5. Chronic heavy smoker. PLAN: We will continue aspirin 325 mg daily. Thrombophilia workup pending. Blood pressure better controlled now. He is on hydralazine p.r.n., Lipitor 40 mg daily, Protonix 20 mg daily. Cardiology consultation, Dr. Turner, requested for tachycardia and hypertension. Bedside physical therapy requested. Luz Maria Dominguez MD
--- NOTE | 2017-12-02 11:29 | CP.PCM.CON ---
History of Present Illness - History of Present Illness History of Present Illness: Lying in bed, awake,no distress, denies chest pain Reason for consultation: Cardiac evaluation, left sided weakness with TPA in the ER, post stroke protocol,current smoker,hypertension Brief history of present illness: A 47 year old male who came in to the ER due to left sided weakness on left leg and arm. He woke up at 5 am and claimed to be "walking weird". He went back to sleep and woke up at 11am and unable to move his left leg when attempted to walk. He has weakness of his left arm. CT scan of head revealed no hemorrhage. MRI of the brain showe 12 mm acute infarct in the right posterior clemente radiata extending into internal capsule. Stroke protocol was initiated and TPA was given in the ER. History of hypertension and current heavy smoker. Seen and examined by me and Dr. Medrano Review of Systems - Cardiovascular Additional comments: tachycardia - Respiratory Additional comments: denies shortness of breath, - Gastrointestinal Additional comments: denies any problems - Genitourinary Additional comments: continent - Neurological Additional comments: left sided weakness, left leg more than left arm, no slurred speech left arm drifting Past Patient History - Infectious Disease Hx of Infectious Diseases: None - Past Social History Smoking Status: Heavy Smoker > 10 Cigarettes Daily - CARDIAC Hx Hypertension: Yes - PULMONARY Hx Respiratory Disorders: Yes (SMOKES PK 1/2 X 20 YRS) - NEUROLOGICAL HX Cerebrovascular Accident: Yes (L sided weakness) - HEENT Hx HEENT Problems: No - RENAL Hx Chronic Kidney Disease: No - ENDOCRINE/METABOLIC Hx Endocrine Disorders: No - HEMATOLOGICAL/ONCOLOGICAL Hx Blood Disorders: No - INTEGUMENTARY Hx Dermatological Problems: Yes (YELLOW,WHITE NAILS,BRITTLE.) - MUSCULOSKELETAL/RHEUMATOLOGICAL Hx Musculoskeletal Disorders: No Hx Falls: Yes (5-3-18) - GASTROINTESTINAL Hx Gastrointestinal Disorders: No - GENITOURINARY/GYNECOLOGICAL Hx Genitourinary Disorders: No - PSYCHIATRIC Hx Substance Use: No - SURGICAL HISTORY Hx Surgeries: No Meds Allergies/Adverse Reactions: Allergies Allergy/AdvReac Type Severity Reaction Status Date / Time No Known Allergies Allergy Verified 11/29/17 16:05 - Medications Medications: Current Medications Acetaminophen (Tylenol 325mg Tab) 650 mg PO Q6H PRN PRN Reason: Pain, moderate (4-7) Aspirin (Aspirin) 325 mg PO DAILY [facility] Last Admin: 12/02/17 09:20 Dose: 325 mg Atorvastatin Calcium (Lipitor) 40 mg PO DIN [facility] Last Admin: 12/01/17 18:13 Dose: 40 mg Hydralazine HCl (Apresoline) 10 mg IVP Q6 PRN PRN Reason: Systolic Blood Pressure Last Admin: 12/01/17 23:53 Dose: 10 mg Metoprolol Tartrate (Lopressor) 50 mg PO BID [facility] Nicotine (Nicoderm Cq) 1 patch TD DAILY [facility] Last Admin: 12/02/17 09:19 Dose: 1 patch Pantoprazole Sodium (Protonix Ec Tab) 20 mg PO 0600,1600 [facility] Last Admin: 12/02/17 06:51 Dose: 20 mg Zolpidem Tartrate (Ambien) 10 mg PO HS PRN; Protocol PRN Reason: Insomnia Physical Exam - Constitutional Appears: No Acute Distress - Head Exam Head Exam: NORMOCEPHALIC - Eye Exam Eye Exam: Normal appearance Pupil Exam: NORMAL ACCOMODATION - ENT Exam ENT Exam: Mucous Membranes Moist - Respiratory Exam Respiratory Exam: Clear to Auscultation Bilateral, NORMAL BREATHING PATTERN - Cardiovascular Exam Cardiovascular Exam: +S1, +S2 Additional comments: telemetry NSR 80's - GI/Abdominal Exam GI & Abdominal Exam: Normal Bowel Sounds, Soft - Exam Additional comments: continent/urinal - Psychiatric Exam Psychiatric exam: Normal Affect, Normal Mood - Skin Skin Exam: Intact, Normal Color, Warm Results - Vital Signs Recent Vital Signs: Last Vital Signs Temp 98.2 F 12/02/17 06:00 Pulse 97 H 12/02/17 06:00 Resp 22 12/02/17 06:00 BP 144/88 12/02/17 06:00 Pulse Ox 100 12/02/17 06:00 - Labs Result Diagrams: 12/02/17 06:15 12/02/17 06:15 Labs: Laboratory Results - last 24 hr 12/02/17 12/02/17 06:15 06:15 WBC 9.7 RBC 4.25 Hgb 14.2 Hct 41.9 L MCV 98.6 MCH 33.4 MCHC 33.9 RDW 13.2 Plt Count 241 MPV 10.6 Gran % 64.8 Lymph % (Auto) 23.2 Williams % (Auto) 8.2 H Eos % (Auto) 3.3 Baso % (Auto) 0.5 Gran # 6.25 Lymph # (Auto) 2.2 Williams # (Auto) 0.8 H Eos # (Auto) 0.3 Baso # (Auto) 0.05 Sodium 143 Potassium 3.9 Chloride 112 H Carbon Dioxide 18 L Anion Gap 17 BUN 17 Creatinine 1.0 Est GFR ( Amer) > 60 Est GFR (Non-Af Amer) > 60 Random Glucose 93 Calcium 9.1 Total Bilirubin 0.9 AST 23 ALT 23 Alkaline Phosphatase 62 Total Protein 7.0 Albumin 4.0 Globulin 2.9 Albumin/Globulin Ratio 1.4 Assessment & Plan - Assessment and Plan (Free Text) Assessment: A 47 year old male who came in to the ER due to left sided weakness on left leg and arm. He woke up at 5 am and claimed to be "walking weird". He went back to sleep and woke up at 11am and unable to move his left leg when attempted to walk. He has weakness of his left arm. CT scan of head revealed no hemorrhage. MRI of the brain showe 12 mm acute infarct in the right posterior clemente radiata extending into internal capsule. Stroke protocol was initiated and TPA was given in the ER. History of hypertension and current heavy smoker. No previous cardiac work up in [facility] [place]. Plan: ECHO result normal LV function, mildly impaired systolic function Post CVA, post TPA Left sided weakness Physical rehab Fall precaution Maintain SBP 170-180's per neurology On ASA 325 mg daily,Lipitor 40 mg daily, Hydralazine PRN Metoprolol 50 mg BID Smoking cessation, on Nicoderm patch on Healthy heart diet Continue current medications Continue current treatment Will follow up Thank you Dr. Franco for the opportunity to take care of Mr. Grey Marcos - Date & Time Date: 12/02/17 Time: 07:15
--- NOTE | 2017-12-03 03:36 | CP.PCM.PN ---
Subjective - Date & Time of Evaluation Date of Evaluation: 12/03/17 Time of Evaluation: 03:34 - Subjective Subjective: S:Requested sleeping pill. Has no other complaints. Medical record was reviewed. O: Last Vital Signs 3 Temp 98.3 F 12/02/17 18:00 Pulse 75 12/02/17 22:49 Resp 20 12/02/17 18:00 BP 167/90 H 12/02/17 22:49 Pulse Ox 100 12/02/17 06:00 Awake, alert, not in distress. LUNGS:Normal breathing pattern. NEURO:Speech normal. A:Adjustment insomnia. P:Benadryl 25 mg PO x 1. Objective - Vital Signs/Intake and Output Vital Signs (last 24 hours): Temp Pulse Resp BP Pulse Ox 98.3 F 75 20 167/90 H 100 12/02/17 18:00 12/02/17 22:49 12/02/17 18:00 12/02/17 22:49 12/02/17 06:00 Intake and Output: 12/02/17 12/03/17 18:59 06:59 Intake Total 360 Output Total 200 Balance 160 - Medications Medications: Current Medications Acetaminophen (Tylenol 325mg Tab) 650 mg PO Q6H PRN PRN Reason: Pain, moderate (4-7) Aspirin (Aspirin) 325 mg PO DAILY [facility] Last Admin: 12/02/17 09:20 Dose: 325 mg Atorvastatin Calcium (Lipitor) 40 mg PO DIN [facility] Last Admin: 12/02/17 17:18 Dose: 40 mg Hydralazine HCl (Apresoline) 10 mg IVP Q6 PRN PRN Reason: Systolic Blood Pressure Last Admin: 12/02/17 22:49 Dose: 10 mg Metoprolol Tartrate (Lopressor) 50 mg PO BID [facility] Last Admin: 12/02/17 17:20 Dose: 50 mg Nicotine (Nicoderm Cq) 1 patch TD DAILY [facility] Last Admin: 12/02/17 09:19 Dose: 1 patch Pantoprazole Sodium (Protonix Ec Tab) 20 mg PO 0600,1600 [facility] Last Admin: 12/02/17 17:20 Dose: 20 mg Zolpidem Tartrate (Ambien) 10 mg PO HS PRN; Protocol PRN Reason: Insomnia - Labs Labs: 12/02/17 06:15 12/02/17 06:15 PT 10.2 SECONDS (9.4-12.5) 11/29/17 14:22 INR 0.90 (0.93-1.08) L 11/29/17 14:22 APTT 32.8 Seconds (25.1-36.5) 11/29/17 14:22
[2017-12-03] MEDS: Pantoprazole 20 mg EC Tab PO SCH ×2 (07:04→17:44)
[2017-12-03 07:33] LABS: BASO # 0.06 K/mm3 (0.0-2.0); BASO % 0.5 % (0.0-3.0); EOS # 0.4 (0.0-0.7); EOS % 3.2 % (1.5-5.0); GRAN # 8.67 (1.4-6.5); GRAN % 69.1 % (50.0-68.0); HEMOGLOBIN 14.2 g/dL (14.0-18.0); LYMPH # 2.3 (1.2-3.4); LYMPH % 18.6 % (22.0-35.0); MEAN CELL VOLUME 98.8 fl (80.0-105.0); MEAN CORPUSCULAR HEMOGLOBIN 33.3 pg (25.0-35.0); MEAN CORPUSCULAR HGB CONC 33.6 g/dl (31.0-37.0); MEAN PLATELET VOLUME 10.8 fl (7.0-11.0); MONO # 1.1 (0.1-0.6); MONO % 8.6 % (1.0-6.0); RBC 4.27 10^6/uL (3.5-6.1); RED CELL DISTRIBUTION WIDTH 13.1 % (11.5-14.5); WHITE BLOOD COUNT 12.5 10^3/ul (4.5-11.0)
--- NOTE | 2017-12-03 07:47 | CP.PCM.PN ---
Subjective - Date & Time of Evaluation Date of Evaluation: 12/03/17 Time of Evaluation: 08:00 - Subjective Subjective: PGY2 Neuro progress note for Dr. Han Patient seen and examined at bedside. Nursing reported no acute events overnight. Patient continues to experience weakness in his left foot. He has been walking with the walker with PT. Denied acute complaints of fever, chills, headache, dizziness, chest pain, palpitations, SOB, cough, abd pain, nausea, vomiting, bowel/bladder complaints, pain/swelling in legs b/l. Objective - Vital Signs/Intake and Output Vital Signs (last 24 hours): Temp Pulse Resp BP Pulse Ox 98.7 F 65 19 167/90 H 97 12/03/17 00:00 12/03/17 02:00 12/03/17 00:00 12/03/17 00:00 12/03/17 00:00 - Medications Medications: Current Medications Acetaminophen (Tylenol 325mg Tab) 650 mg PO Q6H PRN PRN Reason: Pain, moderate (4-7) Aspirin (Aspirin) 325 mg PO DAILY [facility] Last Admin: 12/02/17 09:20 Dose: 325 mg Atorvastatin Calcium (Lipitor) 40 mg PO DIN [facility] Last Admin: 12/02/17 17:18 Dose: 40 mg Hydralazine HCl (Apresoline) 10 mg IVP Q6 PRN PRN Reason: Systolic Blood Pressure Last Admin: 12/02/17 22:49 Dose: 10 mg Metoprolol Tartrate (Lopressor) 50 mg PO BID [facility] Last Admin: 12/02/17 17:20 Dose: 50 mg Nicotine (Nicoderm Cq) 1 patch TD DAILY [facility] Last Admin: 12/02/17 09:19 Dose: 1 patch Pantoprazole Sodium (Protonix Ec Tab) 20 mg PO 0600,1600 [facility] Last Admin: 12/03/17 07:04 Dose: 20 mg Zolpidem Tartrate (Ambien) 10 mg PO HS PRN; Protocol PRN Reason: Insomnia - Labs Labs: 12/03/17 07:00 12/02/17 06:15 PT 10.2 SECONDS (9.4-12.5) 11/29/17 14:22 INR 0.90 (0.93-1.08) L 11/29/17 14:22 APTT 32.8 Seconds (25.1-36.5) 11/29/17 14:22 - Constitutional Appears: Non-toxic, No Acute Distress - Head Exam Head Exam: ATRAUMATIC, NORMAL INSPECTION, NORMOCEPHALIC - Eye Exam Eye Exam: EOMI, Normal appearance, PERRL. absent: Conjunctival injection, Scleral icterus - ENT Exam ENT Exam: Mucous Membranes Moist - Neck Exam Neck Exam: Full ROM, Normal Inspection - Respiratory Exam Respiratory Exam: Clear to Ausculation Bilateral, NORMAL BREATHING PATTERN - Cardiovascular Exam Cardiovascular Exam: RRR, +S1, +S2 - GI/Abdominal Exam GI & Abdominal Exam: Soft, Normal Bowel Sounds - Extremities Exam Extremities Exam: absent: Pedal Edema - Neurological Exam Neurological Exam: Alert, Awake, Oriented x3 Neuro motor strength exam: Left Upper Extremity: 4, Right Upper Extremity: 5, Left Lower Extremity: 4, Right Lower Extremity: 5 Additional comments: -LUE pronator drift -LUE and LLE weaker than RUE and RLE respectively -hyprereflexia LLE -L foot drop -sensation intact in all 4 extremities - Psychiatric Exam Psychiatric exam: Normal Affect, Normal Mood - Skin Skin Exam: Dry, Intact Assessment and Plan - Assessment and Plan (Free Text) Assessment: 47 year old male with PMHx HTN presents for right MCA CVA, s/p tPA Plan: -recommend continuing ASA 325mg po qdaily upon discharge -recommend patient drinking 3L water/day -recommend physical therapy in [facility] -recommend f/u with neurology outpatient Discussed with Dr. Guille Cazares PGY2
[2017-12-03 07:48] LABS: ALB/GLOB RATIO 1.4 (1.1-1.8); ALBUMIN 4.1 g/dL (3.0-4.8); ALT/SGPT 16 U/L (7-56); AST/SGOT 23 U/L (17-59); BLOOD UREA NITROGEN 23 mg/dL (7-21); CALCIUM 9.3 mg/dL (8.4-10.5); GFR AFRICAN-AMERICAN > 60; GFR NON-AFRICAN AMERICAN > 60
--- NOTE | 2017-12-03 08:18 | CON ---
DATE: 11/30/2017 REQUESTING PHYSICIAN: Bill Franco MD REASON FOR CONSULTATION: Possible hypercoagulable state, history of thrombotic stroke. HISTORY OF PRESENT ILLNESS: Mr. Marcos is a 47-year-old male admitted to the hospital with left arm and left leg weakness. He woke up in the morning and felt the weakness in the left leg. He a.m. until he realized that he might be having stroke and called 911. MRI of the brain showed 12 mm infarction in internal capsule on the right side. He received tPA. No family history of stroke, DVT or FL. He has history of hyperlipidemia. The triglyceride elevated to 210. PAST SURGICAL HISTORY: None. FAMILY HISTORY: No positive family history of FL, stroke. ALLERGIES: NO KNOWN DRUG ALLERGIES. HOME MEDICATIONS: None. REVIEW OF SYSTEMS: As per HPI. Rest of 12-point review of systems reviewed and negative. PHYSICAL EXAMINATION: GENERAL: Comfortable in bed, in no acute distress. VITAL SIGNS: Stable. Temperature 98, heart rate 81 per minute, blood pressure 171/99, respiratory rate 15 per minute, oxygen saturation 98% on room air. HEENT: No pallor. NECK: No lymphadenopathy. CHEST: Air entry present equal and bilateral. No added sounds. CARDIOVASCULAR: S1 and S2 normal. No murmur. No gallop. ABDOMEN: Soft, nontender. No hepatosplenomegaly. EXTREMITIES: No edema. SKIN: No petechiae. No rash. SPINE: Nontender. LABORATORY DATA: White count 13.3, hemoglobin 14.5, hematocrit 41.1, platelet 249. Sodium 134, potassium 3.7, carbon dioxide 12, creatinine 0.8, triglyceride 210, cholesterol 232, LDL 135, HDL 70. PT 10.2, INR 0.9, PTT 32.8. MEDICATIONS: Lipitor 40 mg daily, hydralazine 40 mg every 6 hours p.r.n., Cardene drip, nicotine patch, Protonix, , IV fluids 800 mL an hour, status post tPA. ASSESSMENT AND PLAN: 1. Thrombotic ischemic stroke of right internal capsule. 2. Left-sided hemiparesis. 3. Hyperlipidemia. 4. Heavy smoker. PLAN: He might have underlying hypercoagulable state. Protein C level and activity, protein S level and activity, lupus anticoagulant, antiphospholipid antibody, TONA, prothrombin gene mutation, MTHFR gene mutation, factor V Leiden ordered. Discussed with Mr. Marcos for smoking cessation, control of lipids. If he has underlying major factor for thrombosis on the workup, he will be evaluated for long-term anticoagulation because of ischemic stroke at an early age 47. Discussed all of the above with Mr. Marcos. Thank you, Dr. Franco for allowing us to participate in Mr. Marcos' care. We will continue to follow. Luz Maria Dominguez MD [facility]
[2017-12-03 09:09] VITALS: O2SAT 98
[2017-12-03 12:28] VITALS: RESP 20; TEMP 98.8
[2017-12-03 17:46] VITALS: BP 150/94; PULSE 60
--- NOTE | 2017-12-03 18:24 | PN ---
DATE: 12/03/2017 REASON FOR CONSULTATION AND FOLLOWUP: Acute CVA, cardiac evaluation, status post tPA. SUBJECTIVE: Patient denies any chest pain, shortness of breath, or any palpitations. PHYSICAL EXAMINATION: GENERAL: Not in apparent distress. VITAL SIGNS: Temperature afebrile, heart rate 76, blood pressure 152/93. HEENT: PERRLA, intact. NECK: Supple. No carotid bruit or thyromegaly. CHEST: Clear to auscultation. HEART: S1 and S2, regular. ABDOMEN: Soft. EXTREMITIES: Clubbing and cyanosis negative. LABORATORY DATA: Blood workup as follows. WBC 12.9, hemoglobin 14.2, hematocrit 42.2, and platelet count 236. Chemistry shows sodium 140, potassium 3.8, chloride 112, carbon oxide of 18, anion gap 17. BUN 23, creatinine 1. IMPRESSION: Acute cerebrovascular accident with residual left-sided weakness, currently smoker, status post tPA, left-sided weakness, hypertension. As per protocol of neurology, patient is on p.r.n. hydralazine for systolic more than 170. Continue metoprolol. Continue amlodipine. Continue to rehab. Continue nicotine patch. We will follow. Patient had echocardiography done yesterday that shows left ventricle systolic function appeared intact. EF 46%. MRI of the brain shows 12 mm acute infarct in the right posterior clemente radiata extending to the internal capsule. RECOMMENDATIONS: As mentioned, continue aspirin, continue metoprolol, continue amlodipine. We will put p.r.n. hydralazine if systolic more than 170. We will follow. LDL 135 and triglyceride 210. Total cholesterol 232, HDL 70. Put atorvastatin 80 mg. Alex Turner MD
[2017-12-04 08:17] LABS: B2 GLYCOPROTEIN I AB(IGA) <9 SAU (<=20); B2 GLYCOPROTEIN I AB(IGG) <9 SGU (<=20); B2 GLYCOPROTEIN I AB(IGM) <9 SMU (<=20)
--- NOTE | 2017-12-04 09:11 | DS ---
SUBJECTIVE: This is a 47-year-old male who had come to the hospital because of an acute CVA. The patient was having left-sided weakness and was brought in. The patient had been given tPA. He had some improvement of the symptoms. He was seen by Neurology. He was also seen by Hematology for workup for secondary causes. The patient is on aspirin, Lipitor. He is going to be discharged to acute rehab facility. ASSESSMENT: 1. Acute right middle cerebral artery stroke, status post tissue plasminogen activator. 2. Smoking. 3. Dyslipidemia. 4. Hypertension. PLAN: The patient is currently comfortable. The patent is going to continue with Lipitor for dyslipidemia. I have increased this to 80 mg. Patient is on a nicotine patch for smoking. He is on Protonix. His blood pressure is better controlled at this point. He does continue to have mildly elevated blood pressure. I will place him on blood pressure medications with amlodipine. He is currently comfortable. CONDITION: Stable. ACTIVITIES: Increase as tolerated. Bill Franco MD
[2017-12-05 06:47] LABS: PHOSPHATIDYLSERINE AB IGA <20 U/mL (<20); PHOSPHATIDYLSERINE AB IGG <10 U/mL (<10); PHOSPHATIDYLSERINE AB IGM <25 U/mL (<25)
== END 2017-12-03 19:20 | DRG 62 ==
LOC: ED 13:57 → ERH 15:35 → CCU 17:08 → 2RSO 12-01 00:11
PROVIDERS: ADMIT Internal Medicine Nephrology; ATTEND Internal Medicine Nephrology
DX: I63.511 Cerebral infarction due to unspecified occlusion or stenosis of right middle cerebral artery (principal); G81.94 Hemiplegia, unspecified affecting left nondominant side; R29.708 NIHSS score 8; I10 Essential (primary) hypertension; E78.00 Pure hypercholesterolemia, unspecified; F17.210 Nicotine dependence, cigarettes, uncomplicated; F51.02 Adjustment insomnia; R00.0 Tachycardia, unspecified